=== PATIENT | female | born 1960 ===

== ENCOUNTER 2024-04-21 10:22 | Outpatient (REF) | payer OTHER, SELFPAY ==
--- OUTSIDE RECORDS SUMMARY | 2024-04-21 11:35 | XMS_ITS | Continuity of Care Document ---
Author Organization [facility] ter Address [address] [place] [id number]- Care Team Providers Care Chief Of Vital Statistics Name Role Phone Unique Ram MD Primary [facility] Phys[id number] Date(s): 02/14/24 - 03/30/[address] [address] Attending Physician: Lior Mathews MD Admitting Physician: Lior Mathews MD Referring Physician: Lior Mathews MD Encounter Type: Pre-Outpt Allergies, Adverse Reactions, Alerts No Known Medication Allergies Immunizations Given and Recorded Vaccine Date Status Refusal Reason influenza virus vaccine, inactivated 01/06/22 Cy rded [id number] 12y+ bivalent booster vax 01/06/22 Recorded Measles/Mumps/Rubella Virus Vaccine 12/06/20 Recor ded Measles/Mumps/Rubella Virus Vaccine 11/07/20 Recor ded SARS-CoV-2 (COVID-19) mRNA BNT-162b2 vac 08/04/20 Recorded SARS-CoV-2 (COVID-19) mRNA BNT-162b2 vac 07/14/20 Recorded Social History Social History Type Response Smoking Status Never (less than 100 in lifetime) entered on: 06/23/21 Sex Sex Representation Female (finding) Patient Care team information Care Team Personnel Name: Unique Ram MD Position: [facility] Outreach Member Role: PCP Address: [address] [place] [address] [facility] [place] [address] PI Telecom: Care Team Related Persons Name: YOEL MCCLELLAND Insurance Providers Guarantor name: DELMY MCCLELLAND Health Plan Information #: 2 Payer: MEDICARE PART B OUTPT Member Number: [id number] Policy Number: NA Group Number: NA Health Plan Information #: 1 Payer: MEDICARE PART B OUTPT Member Number: [id number] Policy Number: SYLVIA Group Number: NA Health Plan Information #: 3 Payer: SYLVIA Member Number: NA Policy Number: NA Group Number: NA
== END 2024-04-21 10:23 | disposition home or self-care (01) ==
LOC: HO.SH 10:22
PROVIDERS: Visit Provider Internal Medicine
DX: Z01.118 Encounter for examination of ears and hearing with other abnormal findings (principal); H90.42 Sensorineural hearing loss, unilateral, left ear, with unrestricted hearing on the contralateral side
CPT/HCPCS: 92557